=== PATIENT | female | born 1945 | race Caucasian/White ===

== ENCOUNTER → 2017-05-19 | Outpatient (CLI) | payer MEDICARE ==
[~2017-05-19] MED LIST: AMOXICILLIN875 MG PO; AUGMENTIN 875-1 EACH PO; BACTRIM DS 8001 TAB PO; CEPHALEXIN500 MG PO; CIPRO 500MG TA500 MG PO; KEFLEX 500MG.500 MG PO; OXAZEPAM 15MG C15 M1 PO; OXAZEPAM10 MG PO; PERCOCET 5/3251 EACH PO; PROMETHAZINE HC25 M1 PO; PROMETHAZINE25 M1 PO; ZOFRAN 8MG TABLE8 MG PO
[2017-05-19 14:58] LABS: LYMPH # 0.4 K/mm3 (0.7-4.5); LYMPH % 43.9 % (10-50.0)
[2017-05-19 15:15] LABS: HEMOGLOBIN 8.2 g/dL (12.2-16.2)
[2017-05-19 16:04] LABS: NEUTROPHILS 40 % (42-76)
== END ==
LOC: LAB 14:33
PROVIDERS: Internal Medicine Hematology & Oncology
DX: C34.01 Malignant neoplasm of right main bronchus (principal); T82.868A Thrombosis due to vascular prosthetic devices, implants and grafts, initial encounter; Z79.01 Long term (current) use of anticoagulants